=== PATIENT | male | born 1985 | race Caucasian/White ===

== ENCOUNTER → 2017-04-02 | Outpatient (CLI) | payer BC ==
--- NOTE | 2017-04-02 17:32 | DI ---
XR ANKLE COMPLETE MIN 3VW,04/02/2017 4:32 PM: Clinical History: Left ankle pain Previous Exam: None at this facility. Findings: 3 views of the left ankle are obtained, and demonstrate anatomic alignment without fractures. There i s prominence of the soft tissues overlying the lateral malleolus. Impression: No fracture.
== END ==
LOC: MOB RAD 16:32
PROVIDERS: ATTEND Physician Assistant
DX: M25.572 Pain in left ankle and joints of left foot (principal); S93.402A Sprain of unspecified ligament of left ankle, initial encounter; W17.89XA Other fall from one level to another, initial encounter; Y93.01 Activity, walking, marching and hiking; Y92.480 Sidewalk as the place of occurrence of the external cause
CPT/HCPCS: 73610